=== PATIENT | male | born 1995 | race Caucasian/White ===

== ENCOUNTER → 2024-10-27 | Outpatient (CLI) | payer MEDICAID, SELFPAY ==
--- NOTE | 2024-10-27 | XR_ITS ---
Examination: Knee bilateral, 6 views Technique: Knee AP, lateral, oblique each knee total 6 views Date and time of exam: November 24, 2024 1135 hours INDICATIONS: Bilateral knee pain 6 years. FINDINGS: Normal bone density No fracture or dislocation involving either knee No knee effusion is noted IMPRESSION: No fracture or significant arthritic change involving either knee No knee effusion is noted
== END | disposition home or self-care (01) ==
PROVIDERS: PCP Nurse Practitioner Family; Referring Provider Anesthesiology; Visit Provider Anesthesiology
DX: M25.561 Pain in right knee (principal); M25.562 Pain in left knee
CPT/HCPCS: 73562

== ENCOUNTER 2025-04-06 20:03 | Emergency (ER) | payer MEDICAID, SELFPAY ==
[2025-04-06 20:04] VITALS: BMI 37.1
[2025-04-06 20:23] VITALS: BP 143/94; PULSE 108; RESP 18; TEMP 37.2; O2SAT 96
[2025-04-06] MEDS: HYDROcodone/APAP 5/325 TABLET 1 TAB PO (20:58)
--- NOTE | 2025-04-06 21:32 | PD.EDEXREM ---
ED Extremity Problem RME/HPI General Chief complaint: Extremity Injury, Lower Stated complaint: BILATERAL CHRONIC LEG PAIN Time Seen by Provider: 04/06/25 20:44 Arrival date/time: 04/06/25 20:03 29M with history of chronic bilateral knee pain (2 years) and LVH presents to ED with worse than usual bilateral knee pain. Patient denies fall/trauma. Patient has been taking Tylenol w/o relief. Patient cannot have ibuprofen due to small gastric ulcer that resulted from it. Limitations: no limitations Related Data Previous Rx's ?Medication ?Instructions ?Recorded ibuprofen 600 mg tablet 1 tab PO Q8HR PRN pain #30 tabs 10/14/17 ibuprofen 800 mg tablet 800 mg PO TID PRN pain #30 tabs 07/22/22 oxycodone-acetaminophen 5 mg-325 1 tab PO BID PRN Pain #14 tabs 05/18/23 mg tablet cyclobenzaprine 10 mg tablet 10 mg PO BID PRN muscle spasm #14 08/20/23 tabs tramadol 50 mg tablet 50 mg PO Q8H PRN pain #21 tabs 08/20/23 loperamide 2 mg capsule 2 mg PO Q6H PRN loose stool #10 04/29/24 (Anti-Diarrheal (loperamide)) caps metoclopramide HCl 10 mg tablet 10 mg PO Q6H PRN nausea and 04/29/24 (Reglan) vomiting #14 tabs Allergies Allergy/AdvReac Type Severity Reaction Status Date / Time No Known Allergies Allergy Verified 07/22/22 08:22 Review of Systems Review of Systems Systems Reviewed: All systems reviewed, normal except as documented Constitutional Constitutional: Reports system reviewed and no additional complaints, except as documented, Denies fever(s) and Denies headache(s) ENT Ears, Nose, Mouth, and Throat: Denies disequilibrium and Denies headache(s) Cardiovascular Cardiovascular: Reports system reviewed and no additional complaints, except as documented, Denies chest pain and Denies dyspnea Respiratory Respiratory: Reports system reviewed and no additional complaints, except as documented, Denies cough and Denies dyspnea Gastrointestinal Gastrointestinal: Reports system reviewed and no additional complaints, except as documented, Denies abdominal pain, Denies nausea and Denies vomiting Musculoskeletal Musculoskeletal: Reports as per HPI and Reports arthralgias Neurologic Neurologic: Reports system reviewed and no additional complaints, except as documented, Denies confusion, Denies disequilibrium and Denies headache(s) Psychiatric Psychiatric: Denies confusion Past Medical History Past Medical History NEUROLOGIC: Negative Neurological Disorders CARDIAC: Negative Cardiac Disorders or Congestive Heart Failure RESPIRATORY: Negative Chronic Obstructive Pulmonary Disease (COPD) GASTROINTESTINAL: Positive Gastrointestinal Disorders (gastritis) GENITOURINARY: Negative Genitourinary Disorders or Renal Disease MUSCULOSKELETAL: Positive Arthritis (rhianna. knees) ENDOCRINE: Negative Diabetes Mellitus Type 1 or Diabetes Mellitus Type 2 HEMATOLOGIC: Negative Blood Disorders OTHER HISTORY: Positive Chicken Pox; Negative Hospitalization, Autoimmune Disease, Down Syndrome, Developmental Delay, Shingles, Falls, Anesthesia Reactions or Cancer Family History FAMILY HISTORY: Positive Family Respiratory Disorders (grandmother lung ca, cystic fibrosis brother) and Family Cardiac Disorders (mother); Negative Family Psychiatric Problems or Family Gastrointestinal Problems Surgical History SURGICAL: Positive Eye Surgery (rhianna.); Negative Cardiac Surgery Social History SMOKING STATUS: Never smoker ED Exam General Limitations: Present no limitations General appearance: Present alert and in no apparent distress Head Head exam: Present atraumatic Eye Eye exam: Present normal appearance, PERRL and EOMI ENT ENT exam: Present normal exam, normal oropharynx and mucous membranes moist Neck Neck exam: Present normal inspection, full ROM and trachea midline Chest Chest inspection: Present normal inspection and symmetric chest wall rise Respiratory Respiratory exam: Present normal lung sounds bilaterally Cardiovascular Cardiovascular exam: Present regular rate, normal rhythm and normal heart sounds Abdominal Exam Abdominal exam: Present soft and normal bowel sounds Extremities Exam Extremities exam: Present normal inspection and full ROM Back Exam Back exam: Present normal inspection and full ROM Neurological Exam Neurological exam: Present alert, oriented X3 and CN II-XII intact Psychiatric Psychiatric exam: Present normal affect and normal mood Skin Skin exam: Present warm, dry, intact and normal color Course Quality Measures none Orders Category Date Time Status HYDROcodone*/APAP 5/325 [Sunol 5/325] Med 04/06/25 20:54 Discontinued 1 tab PO X1 ONE Vital Signs Vital signs: Vital Signs Temperature 98.9 F 04/06/25 20:23 Pulse Rate 108 H 04/06/25 20:23 Respiratory Rate 18 04/06/25 20:23 Blood Pressure 143/94 H 04/06/25 20:23 Pulse Oximetry (%) 96 04/06/25 20:23 Oxygen Delivery Method Room Air 04/06/25 20:23 O2 at 96% on RA and WNLs Extremity Problem MDM Narrative MDM Narrative:: 29M with history of chronic bilateral knee pain (2 years) and LVH presents to ED with worse than usual bilateral knee pain. Patient denies fall/trauma. Patient has been taking Tylenol w/o relief. Patient cannot have ibuprofen due to small gastric ulcer that resulted from it. Physical exam reveals normal bilateral knee exam. Gait normal. Normal ROM. Patient is afebrile, calm, and alert. Meds and assistant corporation counsel given. Patient data External records reviewed:: [facility] previous records Clinical information provided by:: patient Social determinants that could affect healthcare access:: none Patient has the following chronic illnesses:: chronic bilateral knee pain (2 years) and LVH How is presenting disease/condition affected by chronic disease/condition?: exacerbated by Evaluation data The following diagnostics were reviewed and interpreted by me:: other (specify) (none) Lab and/or radiology exams considered but not ordered:: not ordered Interpretation Summary: n/a Medications / Prescriptions Medications or Prescriptions considered but not ordered:: ordered Medication administrations:: Medication Administration History Discontinued Medications Hydrocodone Bitart/Acetaminophen (Hydrocodone/Apap 5/325 Tablet) 1 tab PO X1 ONE Stop: 04/06/25 20:55 Last Admin: 04/06/25 20:58 Dose: 1 tab Documented By: MF above Consultations Consultation(s) initiated? (list below): No Diagnosis Extremity Problem Differential Diagnosis: herpes zoster, gout, cellulitis, superficial thrombophlebitis, deep venous thrombosis of upper extremity, lower extremity edema, deep vein thrombosis of lower extremity and other (chronic leg pain) Most likely diagnosis given after review of the tests above:: chronic leg pain Admission Indicated Admission indicated?: not indicated Admission Request Was there a request for admission?: No Disposition Plan Disposition Plan: Discharge Discharge Attestation Discharge Attestation: The patient and all family members were given an opportunity to ask questions and understood the discharge instructions. Discharge instructions specifically effects, indications for sooner follow up or return to the emergency department, and the expected course of current diagnosis. Patient condition: Stable Discharge Plan Plan Patient Disposition: HOME (Self Care) Discharge Disposition comment: Stable Prescriptions/Referrals Prescriptions/Med Rec: No Action ibuprofen 600 MG tablet 1 tab PO Q8HR PRN (Reason: pain) Qty: 30 0RF ibuprofen 800 mg tablet 800 mg PO TID PRN (Reason: pain) Qty: 30 0RF metoclopramide HCl [Reglan] 10 mg tablet 10 mg PO Q6H PRN (Reason: nausea and vomiting) Qty: 14 0RF loperamide [Anti-Diarrheal (loperamide)] 2 mg capsule 2 mg PO Q6H PRN (Reason: loose stool) Qty: 10 0RF oxycodone-acetaminophen 5-325 mg tablet 1 tab PO BID MDD 2 PRN (Reason: Pain) Qty: 14 0RF tramadol 50 mg tablet 50 mg PO Q8H PRN (Reason: pain) Qty: 21 0RF cyclobenzaprine 10 mg tablet 10 mg PO BID PRN (Reason: muscle spasm) Qty: 14 0RF Problem List Clinical Impression: Chronic leg pain Patient/Caregiver Discharge Instructions Education Materials: ED Myalgias Additional Instructions: Please follow-up with PCP within 24-48 hours and return immediately if symptoms worsen. If problem persists, recommend outpatient PT and/or MRI follow-up. In the meantime, rest, use ice/heat, and/or compression. Print Language: Welsh Stand Alone Forms: Patient Portal Info Letter KIKO/BRENDEN Supervising Physician KIKO/BRENDEN Supervising Physician: Dr. Hendricks
== END 2025-04-06 21:02 | disposition home or self-care (01) ==
LOC: SERX 21:05
PROVIDERS: Emergency Provider Emergency Medicine; PCP Nurse Practitioner Family
DX: M25.561 Pain in right knee (principal); M25.562 Pain in left knee; G89.29 Other chronic pain
CPT/HCPCS: 99282; A9270

== ENCOUNTER 2025-06-13 13:30 | Outpatient (RCR) | payer MEDICAID, SELFPAY ==
--- NOTE | 2025-05-26 11:10 | PTNOTE_ITS ---
PT OP Initial Eval Patient Information Outpatient Physical Therapy Treatment Date: 05/26/25 Visit Reasons: BILATERAL KNEE PAIN Medical Diagnosis: Bilateral Knee Pain Treatment Dx #1: Bilateral Knee Pain Start of Care: 05/26/25 Date of Onset: 10 years ago Smoking Status Smoking Status: Never smoker Initial Assessment Subjective: Pt is a 29 y/o male reports of chronic bilateral knee pain (7/10) with popping, locking, and clicking. Pt completed MRI but does not know the result. Pt has limitation with standing, walking, chores, self care, balance, squatting, pivoting, and performing recreational activities. Objective: Bilateral Knee AROM: all motions are WNL Bilateral Knee MMTs: grossly 4-/5 Bilateral Hip MMTs: grossly 3+/5 Special Test (+) Donald (+) Thessaly (+) ant compression test Assessment: Pt demonstrate bilateral knee pain leading to difficulty with ADLs. Pt will attempt physical therapy if pain persist Pt will be refer back to provider for further consultation [employer] Term and [employer] Department Chair Goals 1) Increase bilateral knee MMTs grossly to 4/5 in 6 wks to be able to perform squatting activities 2) Decrease knee pain to 2/10 in 6 wks to be able to perform chores 3) Increase hip MMTs grossly to 4-/5 in 6 wks to be able to perform recreational activities 4) Indep with HEP Treatment Plan 1) Manual Therapy 2) Therapeutic Activities 3) Therapeutic Exercises 4) Modalities (ice, heat) 5) Balance Training 6) Gait Training Frequency and Duration: 2 x wk for 6 wks Certification Dates: 05/26/25 to 08/25/25 Procedure Charges OP PT Eval Mod Complex 30 minutes: Yes
--- NOTE | 2025-05-31 14:36 | PT.ODAYNRPT ---
PT Outpatient Daily Note OP Daily Note Outpatient Physical Therapy Treatment Date: 05/31/25 Visit Reasons: BILATERAL KNEE PAIN Subjective: Pt reports knee pain is mild at this time, pt noticed that when he squats at the gym he has more pain and discomfort. Pt received MRI results it showed that he has a ganglion cyst on the back of the knee. Objective: Please see flow sheet for ther ex list. Assessment: Frequent cues and demonstration for pt to complete monster walks exercise with good technique. Plan: Assess response to treatment. Length of Time (minutes) of Treatment: 30 Minutes Procedure Charges Therapeutic Exercise 30 minutes: Yes
--- NOTE | 2025-06-02 13:37 | PT.ODAYNRPT ---
PT Outpatient Daily Note OP Daily Note Outpatient Physical Therapy Treatment Date: 06/02/25 Visit Reasons: BILATERAL KNEE PAIN Subjective: Pt notices that the swelling of his knee is on the outside and notices it is squishy like there is liquid in there sometimes. Objective: Please see flow sheet for ther ex list. Assessment: Pt reports burning sensation of B knees with hamstring curl, exercise discontinued. Plan: Assess response to treatment. Length of Time (minutes) of Treatment: 30 Minutes Procedure Charges Therapeutic Exercise 30 minutes: Yes
--- NOTE | 2025-06-07 14:36 | PT.ODAYNRPT ---
PT Outpatient Daily Note OP Daily Note Outpatient Physical Therapy Treatment Date: 06/07/25 Visit Reasons: BILATERAL KNEE PAIN Subjective: Pt reports B LE continue to hurt, as per pt he will be seeing a neurologist. Objective: Please see flow sheet for ther ex list. Assessment: Pt demonstrates poor activity tolerance due to pain response. Plan: Continue with poC. Length of Time (minutes) of Treatment: 30 Minutes Procedure Charges Therapeutic Exercise 30 minutes: Yes
--- NOTE | 2025-06-13 14:17 | PT.ODAYNRPT ---
PT Outpatient Daily Note OP Daily Note Outpatient Physical Therapy Treatment Date: 06/13/25 Visit Reasons: BILATERAL KNEE PAIN Subjective: Pt is unsure he can continue seeing the surgeon since his insurance changed. Pt's knee still feels about the same; more knee pain noted this weekend since he was walking a lot in [facility] Objective: Please see flow chart for list of ther ex performed Assessment: tolerate exercises with minimal pain Plan: Continue with PT Length of Time (minutes) of Treatment: 30 Minutes Procedure Charges Therapeutic Exercise 30 minutes: Yes
== END 2025-06-13 23:59 | disposition home or self-care (01) ==
LOC: CPTX 13:30
PROVIDERS: PCP Orthopaedic Surgery; Referring Provider Orthopaedic Surgery; Visit Provider Orthopaedic Surgery
DX: M25.562 Pain in left knee (principal); M25.561 Pain in right knee; R26.2 Difficulty in walking, not elsewhere classified; R26.89 Other abnormalities of gait and mobility; G89.29 Other chronic pain
CPT/HCPCS: 97110; 97162